=== PATIENT | male | born 1960 | race Caucasian/White ===

== ENCOUNTER 2016-12-12 22:21 | Emergency (ER) | payer OTHER ==
[~2016-12-12] VITALS: Ht 157.5 cm; Wt 67.0 kg
[2016-12-12 22:26] VITALS: Ht 157.5 cm; Wt 67.0 kg
--- NOTE | 2016-12-12 23:07 | ERA ---
ER Documentation Chief Complaint Date/Time DATE: 12/12/16 TIME: 23:06 Chief Complaint requesting rehab for alcoholism, 5 shots of tequilla in 2 hours HPI The patient is a 56-year-old male, presenting to the ER because he has been drinking and wanting to go to rehab. He denies seizure, syncope, near syncope, weakness, neck pain, chest pain, abdominal pain, vomiting, dysuria, diarrhea. He has been clean until 5 days ago when he relapsed Past medical history: History of alcohol dependence Past surgical history: None ROS All systems reviewed and are negative except as per history of present illness. Medications Home Meds Active Scripts Chlordiazepoxide* (Chlordiazepoxide*) 25 Mg Capsule, 25 MG PO Q8 Y for ANXIETY, #10 CAP Prov:REYNALDO ROJAS MD 12/13/16 Reported Medications [None] No Conflict Check 04/01/16 Allergies Allergies: Coded Allergies: No Known Allergy (Unverified , 04/01/16) PMhx/Soc History of Surgery: No Anesthesia Reaction: No Hx Neurological Disorder: No Hx Respiratory Disorders: No Hx Cardiac Disorders: No Hx Psychiatric Problems: No Hx Miscellaneous Medical Probl: No Hx Alcohol Use: No Hx Substance Use: No Hx Tobacco Use: No Physical Exam Vitals Vital Signs Date Time Temp Pulse Resp B/P Pulse Ox O2 Delivery O2 Flow Rate FiO2 12/12/16 22:26 98.1 89 17 140/83 99 Physical Exam Const: No acute distress. Head: Atraumatic. Eyes: Normal Conjunctiva. ENT: Normal External Ears, Nose and Mouth. Neck: Full range of motion. No meningismus. Resp: Clear to auscultation bilaterally. Cardio: Regular rate and rhythm, no murmurs. Abd: Soft, non distended, normal bowel sounds, non tender. Skin: No petechiae or rashes. Back: No midline or flank tenderness. Ext: No cyanosis, or edema. Neur: Awake and alert. No focal deficit Psych: Normal Mood and Affect. Results 24 hrs Current Medications Medications (Trade) Dose Ordered Sig/Don Route PRN Reason Start Time Stop Time Status Last Admin Dose Admin Chlordiazepoxide (Librium) 25 mg ONCE ONCE PO 12/13/16 00:30 12/13/16 00:31 DC 12/13/16 00:20 Procedures/MDM MEDICAL MAKING DECISION: The patient is a 56-year-old male, with history of alcohol dependence. He does have any symptoms or signs of alcohol withdrawal or pending DT. He is stable for outpatient follow-up. He was treated with Librium 25 mg p.o. with good response Departure Diagnosis: Primary Impression: Alcohol abuse Condition: Good Comments He was given referral to alcohol rehab that he can go in the morning He was discharged with Librium The patient's blood pressure was elevated (>120/80) but appears stable without evidence of hypertension emergency or urgency. The patient was counseled about the risks of hypertension and urged to pursue outpatient monitoring and therapy within a week with their primary care physician. REYNALDO ROJAS MD Dec 12, 2016 23:07
[2016-12-13] MEDS ORDERED: CHLO25CA9 PO (00:03)
[2016-12-13] MEDS ORDERED: CHLORDIAZEPOXIDE 25 MG CAP PO ONE (00:30)
== END 2016-12-13 01:09 | disposition home or self-care (01) ==
LOC: E/R 22:21
DX: F10.10 Alcohol abuse, uncomplicated (principal); R40.2142 Coma scale, eyes open, spontaneous, at arrival to emergency department; R40.2252 Coma scale, best verbal response, oriented, at arrival to emergency department; R40.2362 Coma scale, best motor response, obeys commands, at arrival to emergency department
CPT/HCPCS: 99283